=== PATIENT | female | born 1930 | race Caucasian/White ===

== ENCOUNTER 2016-09-15 15:41 | Emergency (ER) | payer MEDICARE ==
[~2016-09-15] VITALS: Ht 152.4 cm; Wt 61.4 kg
[2016-09-15 16:03] VITALS: BP 181/80; PULSE 73; RESP 16; TEMP 98.5; O2SAT 100
[2016-09-15] MEDS ORDERED: SYNT25TA PO (16:09)
[2016-09-15] MEDS ORDERED: LOVA20TA PO (16:09)
[2016-09-15] MEDS ORDERED: ACETAMINOPHEN 325 MG TAB PO ONE (16:15)
--- NOTE | 2016-09-15 16:22 | PD ---
HPI Chief Complaint: Fall Time Seen by Provider: 16:07 Travel History International Travel<30 days: No Contact w/Intl Traveler<30days: No Traveled to known affect area: No History of Present Illness HPI 86-year-old female presents for treatment of injuries from a fall. Shortly before arrival here she fell at home. She tripped over a box of water bottles and went forward. She hit both of her knees and her head floor. She does not take any blood thinners. She did not have a loss of consciousness. She does say she feels a bit woozy. She has a history of bilateral knee replacements. She is on a single medication for hypertension and she also takes Synthroid. [facility] Past Medical History High Cholesterol: Yes Diminished Hearing: No Hypertension: Yes Thyroid Disease: Yes Tetanus Vaccination: Unknown Influenza Vaccination: Yes ?: Not Past Surgical History Appendectomy: Yes Section: Yes Cholecystectomy: Yes Social History Alcohol Use: No Tobacco Use: No Allergies-Medications (Allergen,Severity, Reaction): Coded Allergies: No Known Allergies (Unverified , 09/15/16) Reported Meds & Prescriptions Reported Meds & Active Scripts Active Reported Lovastatin 20 Mg Tab 20 Mg PO DAILY Synthroid (Levothyroxine Sodium) 25 Mcg Tab 0 PO DAILY Review of Systems General / Constitutional: No: Fever, Chills Eyes: No: Diploplia, Blurred Vision HENT: Positive: Headaches, No: Vertigo Cardiovascular: No: Chest Pain or Discomfort, Palpitations Respiratory: No: Cough, Shortness of Breath Gastrointestinal: No: Vomiting, Diarrhea Genitourinary: No: Urgency, Frequency Musculoskeletal: Positive: Myalgias, Pain Skin: No Rash Neurologic: No: Weakness Psychiatric: No: Anxiety Physical Exam Narrative GENERAL: Well-developed female SKIN: Warm and dry. HEAD: Normocephalic. Her swelling of the left superior orbital rim forehead EYES: Pupils equal and round. No scleral icterus. No injection or drainage. ENT: No nasal bleeding or discharge. Mucous membranes pink and moist. NECK: Trachea midline. No JVD. CARDIOVASCULAR: Regular rate and rhythm. No murmur appreciated. RESPIRATORY: No accessory muscle use. Clear to auscultation. Breath sounds equal bilaterally. GASTROINTESTINAL: Abdomen soft, non-tender, nondistended. Hepatic and splenic margins not palpable. MUSCULOSKELETAL: No obvious deformities. No clubbing. No cyanosis. No edema. The right knee is ecchymotic on the lateral aspect of the knee. She is able to flex and extend. The left he also has ecchymoses. NEUROLOGICAL: Awake and alert. No obvious cranial nerve deficits. Motor grossly within normal limits. Normal speech. PSYCHIATRIC: Appropriate mood and affect; insight and judgment normal. Data Data Last Documented VS Vital Signs Date Time Temp Pulse Resp B/P Pulse Ox O2 Delivery O2 Flow Rate FiO2 09/15/16 17:09 70 20 184/101 100 09/15/16 16:[address] Brain W/O Iv Contrast(Rout) (09/15/16 16:12) Knee, Complete (4vws) (09/15/16 16:12) Knee, Complete (4vws) (09/15/16 16:12) Acetaminophen (Tylenol) (09/15/16 16:15) MDM Medical Decision Making Medical Screen Exam Complete: Yes Emergency Medical Condition: Yes Medical Record Reviewed: Yes Differential Diagnosis Differential includes contusion, fracture knee, skull fracture, subdural Narrative Course CT scan of the head is been read as negative. X-rays of both knees were obtained and have both been read as negative. Patient is stable for discharge Diagnosis Primary Impression: Multiple contusions Additional Instructions: Take Tylenol for pain. Return as needed Disposition: 01 DISCHARGE HOME Condition: Stable Freedom Wolfe MD Sep 15, 2016 16:22
--- NOTE | 2016-09-15 16:58 | RADHPO ---
EXAM DATE/TIME: 09/15/2016 16:24 [facility] COMPARISON: No previous studies available for comparison. INDICATIONS : Fell, complains of right knee pain at patella. MEDICAL HISTORY : None. SURGICAL HISTORY : Total knee replacement, right. ENCOUNTER: Initial ACUITY: 1 day PAIN SCORE: 8/10 LOCATION: Right knee FINDINGS: There is a total knee prosthesis in place which is well seated with no evidence of fracture or disloc ation or loosening. CONCLUSION: Total knee prosthesis well seated. No acute bony injury. Lee Calvillo MD on September 15, 2016 at 16:56 Board Certified Radiologist. This report was verified electronically.
--- NOTE | 2016-09-15 16:59 | RADHPO ---
EXAM DATE/TIME: 09/15/2016 16:29 [facility] COMPARISON: No previous studies available for comparison. INDICATIONS : Fell, complains of left lateral knee pain. MEDICAL HISTORY : None. SURGICAL HISTORY : Total knee replacement, left. ENCOUNTER: Initial ACUITY: 1 day PAIN SCORE: 8/10 LOCATION: Left lateral knee FINDINGS: Four view examination of the left knee demonstrates no evidence of fracture or dislocation. Total kne e prosthesis in place well-seated CONCLUSION: No acute bony injury Lee Calvillo MD on September 15, 2016 at 16:56 Board Certified Radiologist. This report was verified electronically.
[2016-09-15 17:09] VITALS: BP 184/101; PULSE 70; RESP 20; O2SAT 100
--- NOTE | 2016-09-15 17:16 | RADHPO ---
EXAM DATE/TIME: 09/15/2016 16:45 [facility] COMPARISON: No previous studies available for comparison. INDICATIONS : Left eye contusion. RADIATION DOSE: 56.22 CTDIvol (mGy) MEDICAL HISTORY : Hypertension. SURGICAL HISTORY : None. ENCOUNTER: Initial ACUITY: 1 day PAIN SCALE: 5/10 LOCATION: Left facial TECHNIQUE: Multiple contiguous axial images were obtained of the head. Using automated exposure control and adj ustment of the mA and/or kV according to patient size, radiation dose was kept as low as reasonably a chievable to obtain optimal diagnostic quality images. FINDINGS: CEREBRUM: The ventricles are normal for age. No evidence of midline shift, mass lesion, hemorrhage or acute in farction. No extra-axial fluid collections are seen. POSTERIOR FOSSA: The cerebellum and brainstem are intact. The 4th ventricle is midline. The cerebellopontine angle i s unremarkable. EXTRACRANIAL: The visualized portion of the orbits is intact. SKULL: The calvaria is intact. No evidence of skull fracture. There is a superficial hematoma in the left f rontal region. CONCLUSION: Superficial soft tissue swelling and hematoma left frontal region. Intracranially negative Lee Calvillo MD on September 15, 2016 at 17:14 Board Certified Radiologist. This report was verified electronically.
== END 2016-09-15 17:44 | disposition home or self-care (01) ==
LOC: PHED 15:41
DX: S80.02XA Contusion of left knee, initial encounter (principal); S80.01XA Contusion of right knee, initial encounter; S00.83XA Contusion of other part of head, initial encounter; E78.00 Pure hypercholesterolemia, unspecified; I10 Essential (primary) hypertension; W01.198A Fall on same level from slipping, tripping and stumbling with subsequent striking against other object, initial encounter; Y93.9 Activity, unspecified; Y92.009 Unspecified place in unspecified non-institutional (private) residence as the place of occurrence of the external cause
CPT/HCPCS: 70450; 73564